=== PATIENT | female | born 1985 | race Caucasian/White ===

== ENCOUNTER 2021-01-30 19:56 | Inpatient (IN) | payer OTHER, MEDICAID, SELFPAY ==
[2021-01-30 21:13] VITALS: BP 123/83; PULSE 74; RESP 18; TEMP 36.4; O2SAT 97
[2021-01-30] MEDS: nicotine 2 mg Gum BUCCAL (22:00)
[2021-01-30] MEDS: hyDROXYzine 25 mg Capsule 50 MG PO (22:00)
[2021-01-31] MEDS: OLANZapine 5 mg ODT PO ×2 (00:08→22:07)
[2021-01-31 01:47] VITALS: BMI 24.3
[2021-01-31] MEDS: acetaminophen 325 mg Tablet 650 MG PO ×2 (01:55→21:10)
--- NOTE | 2021-01-31 05:03 | PC.NURSE ---
Patient has been up and down throughout night. Has utilized PRNs with little effect. PRN Nicotine gum and Vistaril given at 2200. Took scheduled Trazodone 300 mg. Was still not able to sleep. At 0008, reported anxiety and mild agitation. Took PRN Zydis at that time. Patient remained calm but was still unable to sleep soundly. Up again at 0155 with complaint of lower back pain. Took PRN Tylenol to good effect. Patient has remained in bed resting with eyes closed since that time up to this point.
[2021-01-31 05:48] VITALS: BP 120/77; PULSE 81; RESP 16; TEMP 36.9; O2SAT 94
[2021-01-31] MEDS: multivitamin therapeutic Tablet 1 TAB PO (08:57)
[2021-01-31] MEDS: ARIPiprazole 30 mg Tablet 15 MG PO (08:57)
[2021-01-31] MEDS: thiamine 100 mg Tablet PO (08:57)
[2021-01-31] MEDS: desvenlafaxine 50 mg Tablet PO (08:57)
[2021-01-31] MEDS: folic acid 1 mg Tablet PO (08:57)
--- NOTE | 2021-01-31 11:33 | NPU.GN ---
[facility] Group Topic:Mental Health Crossword Puzzle/ Psych Education General Mood of Group: Josephine did not participate in group today. She wanted to sleep and was tired.
[2021-01-31 14:00] VITALS: BP 106/67; PULSE 66; RESP 16; TEMP 36.7; O2SAT 97
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
[2021-01-31] MEDS: nicotine 2 mg Gum BUCCAL (18:02)
[2021-01-31 20:12] VITALS: BP 117/83; PULSE 89; RESP 18; O2SAT 96
[2021-01-31] MEDS: trazodone 150 mg Tablet 300 MG PO (21:10)
[2021-01-31] MEDS: hyDROXYzine 25 mg Capsule 50 MG PO (22:07)
--- NOTE | 2021-02-01 04:27 | PC.NURSE ---
Patient quiet and isolative at start of shift. Does have better affect and eye contact today. Took PRN Tylenol for back pain at 2109 to good effect. At 2206 complained of aniety, agitation d/t being unable to sleep. Took PRN Vistaril and Zydis to good effect. Went to bed and has been resting with eyes closed throughout night. No further complaints voiced. No distress noted.
[2021-02-01 06:00] VITALS: RESP 16
[2021-02-01] MEDS: thiamine 100 mg Tablet PO (08:23)
[2021-02-01] MEDS: ARIPiprazole 30 mg Tablet 15 MG PO (08:23)
[2021-02-01] MEDS: multivitamin therapeutic Tablet 1 TAB PO (08:23)
[2021-02-01] MEDS: folic acid 1 mg Tablet PO (08:23)
[2021-02-01] MEDS: desvenlafaxine 50 mg Tablet PO (08:23)
--- NOTE | 2021-02-01 11:09 | NPU.GN ---
[facility] Topic: Meditation Psych Education General Mood of Group: Josephine did not attend group he wanted to sleep.
[2021-02-01] MEDS: nicotine 2 mg Gum BUCCAL (12:51)
[2021-02-01 14:00] VITALS: BP 120/63; PULSE 89; RESP 18; TEMP 36.2; O2SAT 97
[2021-02-01] MEDS: nicotine 21 mg Patch 1 PATCH TRANSDERMA (14:54)
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
[2021-02-01 20:31] VITALS: BP 118/88; PULSE 109; RESP 21; TEMP 36.7; O2SAT 96
[2021-02-01] MEDS: acetaminophen 325 mg Tablet 650 MG PO (21:08)
[2021-02-01] MEDS: trazodone 150 mg Tablet 300 MG PO (21:08)
[2021-02-01] MEDS: OLANZapine 5 mg ODT PO (21:08)
[2021-02-01] MEDS: hyDROXYzine 25 mg Capsule 50 MG PO (21:08)
--- NOTE | 2021-02-01 23:38 | PC.NURSE ---
Administered hydroxyzine 50mg PO for anxiety and zyprexa 5mg PO for agitation per patient request. Medication effective, patient resting with eyes closed in bed with equal, nonlabored respirations
[2021-02-02] MEDS: nicotine 2 mg Gum BUCCAL (00:23)
--- NOTE | 2021-02-02 03:55 | PC.NURSE ---
Patient up, calm and cooperative. In dayroom in evening, less withdrawn. Does endorse mild anxiety and depression, with mild agitation with the anxiety. Does report that both anxiety and depression are both improving since admission. Has remained in bed resting with eyes closed most of evening. Did get up one time after midnight. Denied anxiety but stated just unable to sleep sound. No signs of distress noted.
[2021-02-02 06:00] VITALS: BP 98/70; PULSE 70; RESP 17; TEMP 36.9; O2SAT 96
[2021-02-02] MEDS: nicotine 21 mg Patch 1 PATCH TRANSDERMA (09:06)
[2021-02-02] MEDS: desvenlafaxine 50 mg Tablet PO (09:56)
[2021-02-02] MEDS: ARIPiprazole 30 mg Tablet 15 MG PO (09:57)
[2021-02-02] MEDS: multivitamin therapeutic Tablet 1 TAB PO (09:57)
[2021-02-02] MEDS: folic acid 1 mg Tablet PO (09:57)
[2021-02-02] MEDS: thiamine 100 mg Tablet PO (09:57)
--- NOTE | 2021-02-02 11:54 | NPU.GN ---
[facility] Group Topic:Meditation/ Depression Bingo General Mood of Group: Josephine did not attend group today.
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
[2021-02-02 12:03] VITALS: BP 98/70; PULSE 70; RESP 17; TEMP 36.9; O2SAT 96
== END 2021-02-02 12:16 | disposition home or self-care (01) | DRG 881 ==
PROVIDERS: Admitting Provider Psychiatry & Neurology Psychiatry; Visit Provider Psychiatry & Neurology Psychiatry
DX: F32.A Depression, unspecified (principal); F10.180 Alcohol abuse with alcohol-induced anxiety disorder; F41.9 Anxiety disorder, unspecified; S61.411D Laceration without foreign body of right hand, subsequent encounter; W25.XXXD Contact with sharp glass, subsequent encounter; Z62.810 Personal history of physical and sexual abuse in childhood; Z91.51 Personal history of suicidal behavior; Z91.52 Personal history of nonsuicidal self-harm
CPT/HCPCS: 97165